=== PATIENT | male | born 1990 | race African-American/Black ===

== ENCOUNTER 2019-02-01 11:51 | Emergency (ER) | payer MEDICAID ==
[~2019-02-01] VITALS: Ht 180.3 cm; Wt 98.0 kg
[2019-02-01] MEDS ORDERED: DEXAMETHASONE 10 MG/ML VIAL PO ONE (14:30)
[2019-02-01] MEDS ORDERED: LIDOCAINE HCL 1% 20ML VIAL (Pyxis) INJ INFIL ONE (15:00)
[2019-02-01] MEDS ORDERED: PENICILLIN G BENZATHINE 1,200,000 UNITS/2ML SYR IM ONE (15:00)
[2019-02-01 15:30] VITALS: BP 130/83
== END 2019-02-01 15:30 | disposition home or self-care (01) ==
LOC: ER 15:07
DX: J02.0 Streptococcal pharyngitis (principal); J02.9 Acute pharyngitis, unspecified; F12.10 Cannabis abuse, uncomplicated; F17.200 Nicotine dependence, unspecified, uncomplicated
CPT/HCPCS: 87430; 96372; 99283; J0561; J1100; J3490